=== PATIENT | female | born 1950 | race African-American/Black ===

== ENCOUNTER 2020-08-08 08:34 | Day surgery (SDC) | payer OTHER ==
[2020-08-04 14:01] VITALS: BMI 23.7
[2020-08-08 10:11] VITALS: TEMP 98.2
[2020-08-08 10:58] VITALS: BP 110/56; PULSE 70
== END 2020-08-08 10:59 | disposition home or self-care (01) ==
LOC: FASU-ENDO 08:34
PROVIDERS: ATTEND Internal Medicine Gastroenterology
PROC: 0DBL8ZX Excision of Transverse Colon, Via Natural or Artificial Opening Endoscopic, Diagnostic (ICD-10-PCS; principal; 2020-08-08 09:38)
DX: Z12.11 Encounter for screening for malignant neoplasm of colon (principal); D12.2 Benign neoplasm of ascending colon; K57.30 Diverticulosis of large intestine without perforation or abscess without bleeding
CPT/HCPCS: 88305-TC